=== PATIENT | female | born 1970 ===

== ENCOUNTER → 2025-05-10 | Outpatient (REF) | payer SELFPAY ==
[~2025-05-10] MED LIST: ALBU2.5V10 INH; CLAR1TAB13 PO; FLUT12AE2 IH; LEVO50TA5 PO
[2025-05-10 13:32] LABS: ALT/SGPT 21 U/L (7.0-40); AST/SGOT 22 U/L (<34); CALCIUM LEVEL 9.7 MG/DL (8.5-10.1); CARBON DIOXIDE LEVEL 29 MMOL/L (20-31); CHLORIDE LEVEL 108 MMOL/L (98-107); CHOLESTEROL LEVEL 211 MG/DL (<200); CHOLESTEROL RISK RATIO 4.96 (<5); CREATININE FOR GFR 0.61 MG/DL (0.55-1.30); GLOMERULAR FILTRATION RATE > 90.0 (>51); LDL CHOLESTEROL 145.1 MG/DL (<100); NON-HDL-C 168.5 MG/DL; POTASSIUM SERUM 4.8 MMOL/L (3.5-5.1); SODIUM LEVEL 145 MMOL/L (136-145); TRIGLYCERIDES LEVEL 117 MG/DL (<150)
[2025-05-10 13:34] LABS: TOTAL 25(OH) VITAMIN D 70.2 NG/ML (20.0-100.0)
[2025-05-10 14:52] LABS: ESTIMATED AVERAGE GLUCOSE 103.0 MG/DL (60-110)
== END ==
LOC: M LAB REF 12:34
PROVIDERS: ATTEND Family Medicine Addiction Medicine
DX: E03.9 Hypothyroidism, unspecified (principal); E55.9 Vitamin D deficiency, unspecified